=== PATIENT | male | born 1945 | race Caucasian/White ===

== ENCOUNTER 2019-07-08 22:54 | Inpatient (IN) | payer MEDICARE, BC ==
[~2019-07-08] VITALS: Ht 175.3 cm; Wt 60.3 kg
[2019-07-08] MEDS ORDERED: ALBUTEROL (0.083%) 2.5MG/3ML NEB HHN STA (23:31)
[2019-07-08] MEDS ORDERED: SODIUM CHLORIDE 0.9% 1,000 ML IV ONE (23:31)
[2019-07-08] MEDS ORDERED: IPRATROPIUM BROMIDE (0.02%) 0.5MG/2.5ML NEB HHN STA (23:31)
[2019-07-09] VITALS (22 sets, daily range): BP systolic 110–142; BP diastolic 34–85
[2019-07-09 00:52] LABS: BASOPHILS % 0.6 % (0.0-2.0); EOSINOPHILS % 1.9 % (0.0-5.0); HEMATOCRIT. 37.8 % (42.0-52.0); HEMOGLOBIN. 11.8 g/dL (14.0-18.0); LYMPHOCYTES % 11.9 % (20.0-50.0); MEAN CORPUSCULAR HEMOGLOBIN 26.7 pg (28.0-32.0); MEAN CORPUSCULAR VOLUME 85.1 fL (80.0-94.0); MEAN PLATELET VOLUME 8.2 fl (7.4-10.4); MONOCYTES % 4.9 % (2.0-8.0); NEUTROPHILS % 80.7 % (40.0-76.0); PLATELET 307 x1000/uL (130-400); RED BLOOD CELL COUNT 4.44 mill/uL (4.7-6.1); RED CELL DISTRIBUTION WIDTH 17.4 % (11.6-14.6)
[2019-07-09 00:57] LABS: CHLORIDE 112 mEq/L (98-107)
[2019-07-09 01:03] LABS: D-DIMER 2.82 mg/L FEU (<0.50); INR 1.1; PROTHROMBIN TIME 10.9 sec (9.6-11.0)
[2019-07-09] MEDS ORDERED: DEXTROSE 50% WATER 50ML SYRINGE IV ONE (01:30)
[2019-07-09] MEDS ORDERED: ALBUTEROL (0.083%) 2.5MG/3ML NEB HHN ONE (01:30)
[2019-07-09] MEDS ORDERED: INSULIN REGULAR (HUMULIN R) 300UNITS/3ML IV ONE (01:30)
[2019-07-09] MEDS ORDERED: SODIUM BICARBONATE 8.4% 1 MEQ/ML 50ML SYR IV ONE (01:30)
[2019-07-09] MEDS ORDERED: CALCIUM CHLORIDE 1GM/10ML SYR IV ONE (01:30)
[2019-07-09 02:43] LABS: CLARITY URINE CLEAR (CLEAR); COLOR URINE DARK YELLOW (YELLOW); KETONES URINE TRACE (NEGATIVE); LEUKOCYTE ESTERASE URINE 1+ (NEGATIVE); NITRITE URINE POSITIVE (NEGATIVE); OCCULT BLOOD URINE NEGATIVE (NEGATIVE); PROTEIN URINE TRACE (NEGATIVE); SPECIFIC GRAVITY URINE 1.023 (1.005-1.030)
[2019-07-09 06:15] LABS: BASOPHILS % 0.8 % (0.0-2.0); EOSINOPHILS % 2.1 % (0.0-5.0); HEMATOCRIT. 35.9 % (42.0-52.0); HEMOGLOBIN. 11.3 g/dL (14.0-18.0); LYMPHOCYTES % 17.7 % (20.0-50.0); MEAN CORPUSCULAR HEMOGLOBIN 26.8 pg (28.0-32.0); MEAN CORPUSCULAR VOLUME 85.3 fL (80.0-94.0); MEAN PLATELET VOLUME 7.4 fl (7.4-10.4); MONOCYTES % 6.5 % (2.0-8.0); NEUTROPHILS % 72.9 % (40.0-76.0); PLATELET 247 x1000/uL (130-400); RED BLOOD CELL COUNT 4.22 mill/uL (4.7-6.1)
[2019-07-09] MEDS ORDERED: SODIUM POLYSTYRENE SULFONATE 15 G/60 ML BOT PO SCH (07:00)
[2019-07-09] MEDS ORDERED: DEXTROSE 50% WATER 50ML SYRINGE IV PRN (07:00)
[2019-07-09] MEDS ORDERED: METF-416 MT (07:15)
[2019-07-09] MEDS ORDERED: GLIM2TAB2 MT (07:15)
[2019-07-09] MEDS ORDERED: ALLO100T MT (07:15)
[2019-07-09] MEDS ORDERED: GABA-290 MT (07:15)
[2019-07-09] MEDS ORDERED: INSU100I28 SQ (07:15)
[2019-07-09] MEDS ORDERED: MOEX15TA3 MT (07:15)
[2019-07-09] MEDS ORDERED: SOTA120T MT (07:15)
[2019-07-09] MEDS ORDERED: AMLO5TAB88 MT (07:15)
[2019-07-09] MEDS ORDERED: ASPI81TA47 PO (07:15)
[2019-07-09] MEDS ORDERED: VITA1CAP MT (07:15)
[2019-07-09] MEDS: BLOOD SUGAR DIAGNOSTIC STRIP TEST SCH ×4 (08:00→20:51)
[2019-07-09] MEDS: INSULIN LISPRO 100 UNITS/ML SUBCUT SCH ×4 (08:00→20:55)
[2019-07-09] MEDS ORDERED: ALBUTEROL (0.083%) 2.5MG/3ML NEB HHN NR (08:45)
[2019-07-09] MEDS ORDERED: FUROSEMIDE 40MG/4ML VIAL IVP NR (08:45)
[2019-07-09] MEDS ORDERED: SODIUM BICARBONATE 8.4% 1 MEQ/ML 50ML SYR IV NR (08:45)
[2019-07-09] MEDS ORDERED: AMLODIPINE 5MG TABLET PO SCH (09:00)
[2019-07-09] MEDS ORDERED: INSULIN REGULAR (HUMULIN R) UD 100 UNITS/ML SYR IV NR (09:30)
[2019-07-09] MEDS ORDERED: DEXTROSE 50% WATER 50ML SYRINGE IV NR (09:30)
[2019-07-09] MEDS: ASPIRIN 81MG TABLET PO SCH (09:50)
[2019-07-09 12:22] LABS: PHOSPHORUS 3.2 mg/dL (2.5-4.9)
[2019-07-09] MEDS ORDERED: SODIUM POLYSTYRENE SULFONATE 15 G/60 ML BOT PO NR (15:00)
[2019-07-09] MEDS ORDERED: SODIUM POLYSTYRENE SULFONATE 15 G/60 ML BOT PO ONE (15:00)
[2019-07-09] MEDS ORDERED: LEVOFLOXACIN 500MG PREMIX 100 ML IV NR (20:00)
[2019-07-09] MEDS: ENOXAPARIN 30MG/0.3ML SYR SUBCUT SCH (20:52)
[2019-07-09] MEDS: IPRATROPIUM/ALBUTEROL 0.5-3(2.5)MG/3ML NEB HHN PRN (20:59)
[2019-07-09] MEDS: BUDESONIDE 0.5MG/2ML NEB HHN SCH (20:59)
[2019-07-10] VITALS (10 sets, daily range): BP systolic 110–147; BP diastolic 58–83
[2019-07-10] MEDS: BLOOD SUGAR DIAGNOSTIC STRIP TEST SCH (05:30)
[2019-07-10] MEDS: INSULIN LISPRO 100 UNITS/ML SUBCUT SCH (05:30)
[2019-07-10] MEDS: IPRATROPIUM/ALBUTEROL 0.5-3(2.5)MG/3ML NEB HHN PRN (07:18)
[2019-07-10] MEDS: BUDESONIDE 0.5MG/2ML NEB HHN SCH (07:18)
[2019-07-10] MEDS: ENOXAPARIN 30MG/0.3ML SYR SUBCUT SCH (08:24)
[2019-07-10] MEDS: ASPIRIN 81MG TABLET PO SCH (08:24)
[2019-07-10] MEDS ORDERED: LEVO500T2 MT (09:56)
[2019-07-10] MEDS ORDERED: MAGNESIUM OXIDE 400MG TABLET PO SCH (11:00)
[2019-07-10] MEDS ORDERED: ENOXAPARIN 40MG/0.4ML SYR SUBCUT SCH ×2 (14:49)
[2019-07-10] MEDS ORDERED: LEVOFLOXACIN 250MG PREMIX 50 ML IV SCH (18:00)
[2019-07-11] MEDS ORDERED: LEVOFLOXACIN 250MG TABLET PO SCH (11:00)
== END 2019-07-10 14:00 | disposition home or self-care (01) | DRG 682 ==
LOC: ER 22:54 → EDBEDREQSVC 07-09 02:00 → EDBEDREQTM 07-09 02:00 → EDBEDREQ 07-09 02:00 → ENRESERV 07-09 03:39 → MICUNO 07-09 05:38
PROVIDERS: ADMIT Internal Medicine; ATTEND Internal Medicine
DX: N17.9 Acute kidney failure, unspecified (principal); J96.00 Acute respiratory failure, unspecified whether with hypoxia or hypercapnia; E87.1 Hypo-osmolality and hyponatremia; I13.2 Hypertensive heart and chronic kidney disease with heart failure and with stage 5 chronic kidney disease, or end stage renal disease; N39.0 Urinary tract infection, site not specified; E11.22 Type 2 diabetes mellitus with diabetic chronic kidney disease; E11.51 Type 2 diabetes mellitus with diabetic peripheral angiopathy without gangrene; E78.5 Hyperlipidemia, unspecified; E87.5 Hyperkalemia; F03.90 Unspecified dementia, unspecified severity, without behavioral disturbance, psychotic disturbance, mood disturbance, and anxiety; M54.40 Lumbago with sciatica, unspecified side; F41.9 Anxiety disorder, unspecified; I25.10 Atherosclerotic heart disease of native coronary artery without angina pectoris; I48.91 Unspecified atrial fibrillation; I50.9 Heart failure, unspecified; J44.9 Chronic obstructive pulmonary disease, unspecified; R00.1 Bradycardia, unspecified; N18.6 End stage renal disease; N40.0 Benign prostatic hyperplasia without lower urinary tract symptoms; Z53.20 Procedure and treatment not carried out because of patient's decision for unspecified reasons; Z83.3 Family history of diabetes mellitus; Z86.73 Personal history of transient ischemic attack (TIA), and cerebral infarction without residual deficits; Z87.891 Personal history of nicotine dependence; Z90.79 Acquired absence of other genital organ(s); Z95.1 Presence of aortocoronary bypass graft; Z99.2 Dependence on renal dialysis; Z88.0 Allergy status to penicillin; Z88.8 Allergy status to other drugs, medicaments and biological substances; Z71.3 Dietary counseling and surveillance
CPT/HCPCS: 36415; 71045; 76770; 78580; 80048; 80061; 81003; 82570; 82962; 83605; 83735; 83880; 83935; 84100; 84156; 84300; 84443; 84484; 85379; 93005; 93306; 93970; 94640; 99291; J1650; J1815; J1940; J1956; J3490; J7030; J7611; J7620; J7626; A4315